=== PATIENT | male | born 1975 | race Caucasian/White ===

== ENCOUNTER 2016-05-21 21:29 | Emergency (ER) | payer BC ==
[~2016-05-21] VITALS: Ht 180.3 cm; Wt 89.8 kg
[2016-05-21 21:32] VITALS: TEMP 36.9; Ht 180.3 cm; Wt 89.8 kg
[2016-05-21] MEDS ORDERED: SODIUM CHLORIDE 0.9% 1000ML 1,000 ML IV STA (21:58)
[2016-05-21] MEDS ORDERED: ALBUT/IPRATROP 3MG/0.5MG NEB 3 ML VIAL INH STA (21:58)
[2016-05-21] MEDS ORDERED: OXYMETAZOLINE HCL 0.05% NA SPR 15 ML BTL ONE (22:00)
[2016-05-21] MEDS ORDERED: PARO1TAB27 PO (22:12)
[2016-05-21] MEDS ORDERED: LISI40TA PO (22:12)
[2016-05-21 22:42] LABS: BASO % 0.2 %; BASO ABS # 0.02 K/uL (0-0.2); COMPLETE YES; HEMATOCRIT 40.2 % (42-52); IG% 0.2 %; LYMPH % 26.9 %; MEAN CELL VOLUME 94.6 fL (80-100); MEAN CORPUSCULAR HEMOGLOBIN 33.4 pg (25-34); MEAN CORPUSCULAR HGB CONC 35.3 g/dl (32-36); MEAN PLATELET VOLUME 10.7 fL (7.4-10.4); MONO % 17.1 %; NEUT % 54.6 %; PLATELET COUNT 206 K/uL (130-400); RED BLOOD COUNT 4.25 M/uL (4.7-6.1); WHITE BLOOD COUNT 8.17 K/uL (4.8-10.8)
--- NOTE | 2016-05-21 22:57 | DIAGNOSTIC IMAGING REPORT ---
SINGLE VIEW CHEST CLINICAL HISTORY: Wheezing. FINDINGS: 2 AP, portable, upright chest radiographs are obtained. No prior studies are available for comparison at the time of dictation. The cardiomediastinal silhouette is unremarkable. There is diffuse nonspecific interstitial thickening. No lobar consolidation or large pleural effusion is identified. No pneumothorax is seen. The bony thorax is grossly intact. IMPRESSION: There is diffuse nonspecific interstitial thickening which could represent an infectious or inflammatory pneumonitis. No lobar consolidation or pleural effusion is identified. Electronically signed by: Paulino Kim M.D. 05/21/2016 10:56 PM Dictated Date/Time: 05/21/2016 10:55 PM
[2016-05-21 22:59] LABS: INR 0.9 (0.9-1.1); PARTIAL THROMBOPLASTIN RATIO 1.2
[2016-05-21 23:00] LABS: ALT/SGPT 47 U/L (12-78); BLOOD UREA NITROGEN 9 mg/dl (7-18); BUN/CREATININE RATIO 12.5 (10-20); CALCIUM 8.5 mg/dl (8.5-10.1); CARBON DIOXIDE 20 mmol/L (21-32); CHLORIDE 94 mmol/L (98-107); CREATININE 0.75 mg/dl (0.60-1.40); GLUCOSE 88 mg/dl (70-99); POTASSIUM 3.6 mmol/L (3.5-5.1); SODIUM 129 mmol/L (136-145)
[2016-05-21 23:05] LABS: ALKALINE PHOSPHATASE 75 U/L (45-117); AST/SGOT 60 U/L (15-37)
[2016-05-21] MEDS ORDERED: AZITHROMYCIN 250 MG TAB PO STA (23:25)
[2016-05-21] MEDS ORDERED: PRED50TA PO (23:28)
[2016-05-21] MEDS ORDERED: AZITTAB PO (23:28)
--- NOTE | 2016-05-21 23:29 | EMERGENCY ROOM VISIT NOTE ---
History Report prepared by Carlton: Sawyer Ware Under the Supervision of: Dr. Yao Carpenter M.D. First contact with patient: 21:52 Chief Complaint: NOSE BLEED (MINOR) Stated Complaint: BLOODY NOSE History of Present Illness The patient is a 40 year old male who presents to the Emergency Room with complaints of a persistent nosebleed beginning nine hours prior to arrival. 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 The patient denies hitting his head. He states he has had three episodes out of the right naris. The patient denies experiencing this frequent of a nosebleed in the past. He denies taking blood thinners. The patient notes he has been drinking alcohol this evening and drinks frequently. He denies liver problems. The patient notes he has been experiencing wheezing for the past couple of days and states he smokes two packs of cigarettes a day. He denies taking aspirin. 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 Review of Systems See HPI for pertinent positives & negatives. A total of 10 systems reviewed and were otherwise negative. Past Medical & Surgical Medical Problems: (1) Bronchitis (2) Hypertension (3) Pneumonia Family History Diabetes mellitus FHx: cancer FHx: heart disease Hypertension Seizures Social History Smoking Status: Current Every Day Smoker Alcohol Use: heavy Marital Status: Occupation Status: employed Current/Historical Medications Scheduled Azithromycin (Zithromax Z-López), 1 PKT PO UD Lisinopril (Zestril), 40 MG PO DAILY Paroxetine (Paxil), 20 MG PO DAILY Prednisone (Prednisone), 50 MG PO DAILY Allergies Coded Allergies: No Known Allergies (Unverified , 05/21/16) Physical Exam Vital Signs Date Time Temp Pulse Resp B/P Pulse Ox O2 Delivery O2 Flow Rate FiO2 05/22/16 00:00 88 20 151/90 96 05/21/16 22:55 93 18 137/92 96 Room Air 05/21/16 21:32 36.9 89 18 188/121 97 Room Air Physical Exam GENERAL: Patient is moderately intoxicated appearing and smells heavily of alcohol and tobacco. Shirt is covered in blood. HEENT: Some excoriations to right nasal septum without active bleeding. Blood in right naris. No acute trauma, normocephalic atraumatic, mucous membranes moist, no nasal congestion, no scleral icterus. NECK: No stridor, no adenopathy, no meningismus, trachea is midline. LUNGS: Junky nonproductive cough. Diffuse wheezing and crackles. HEART: Regular rate and rhythm. No murmurs, rubs, gallops appreciated. ABDOMEN: Soft, nontender, bowel sounds positive, no masses appreciated, no peritonitis. BACK: No midline tenderness, no CVA tenderness EXTREMITIES: Normal motion all extremities, no cyanosis, no edema. NEUROLOGIC: Alert and oriented, no acute motor or sensory deficits, no focal weakness, cranial nerves grossly intact. SKIN: No rash, no jaundice, no diaphoresis. Medical Decision & Procedures ER Provider Diagnostic Interpretation: X ray results are stated below per my interpretation and the radiologist's interpretation. SINGLE VIEW CHEST CLINICAL HISTORY: Wheezing. FINDINGS: 2 AP, portable, upright chest radiographs are obtained. No prior studies are available for comparison at the time of dictation. The cardiomediastinal silhouette is unremarkable. There is diffuse nonspecific interstitial thickening. No lobar consolidation or large pleural effusion is identified. No pneumothorax is seen. The bony thorax is grossly intact. IMPRESSION: There is diffuse nonspecific interstitial thickening which could represent an infectious or inflammatory pneumonitis. No lobar consolidation or pleural effusion is identified. Electronically signed by: Paulino Kim M.D. 05/21/2016 10:56 PM Laboratory Results 05/21/16 22:20 Red Blood Count 4.25, Mean Corpuscular Volume 94.6, Mean Corpuscular Hemoglobin 33.4, Mean Corpuscular Hemoglobin Concent 35.3, Mean Platelet Volume 10.7, Neutrophils (%) (Auto) 54.6, Lymphocytes (%) (Auto) 26.9, Monocytes (%) (Auto) 17.1, Eosinophils (%) (Auto) 1.0, Basophils (%) (Auto) 0.2, Neutrophils # (Auto ) 4.45, Lymphocytes # (Auto) 2.20, Monocytes # (Auto) 1.40, Eosinophils # (Auto ) 0.08, Basophils # (Auto) 0.02 05/21/16 22:20 Test 05/21/16 22:20 White Blood Count 8.17 K/uL (4.8-10.8) Red Blood Count 4.25 M/uL (4.7-6.1) Hemoglobin 14.2 g/dL (14.0-18.0) Hematocrit 40.2 % (42-52) Mean Corpuscular Volume 94.6 fL (80-100) Mean Corpuscular Hemoglobin 33.4 pg (25-34) Mean Corpuscular Hemoglobin Concent 35.3 g/dl (32-36) Platelet Count 206 K/uL (130-400) Mean Platelet Volume 10.7 fL (7.4-10.4) Neutrophils (%) (Auto) 54.6 % Lymphocytes (%) (Auto) 26.9 % Monocytes (%) (Auto) 17.1 % Eosinophils (%) (Auto) 1.0 % Basophils (%) (Auto) 0.2 % Neutrophils # (Auto) 4.45 K/uL (1.4-6.5) Lymphocytes # (Auto) 2.20 K/uL (1.2-3.4) Monocytes # (Auto) 1.40 K/uL (0.11-0.59) Eosinophils # (Auto) 0.08 K/uL (0-0.5) Basophils # (Auto) 0.02 K/uL (0-0.2) RDW Standard Deviation 46.8 fL (36.4-46.3) RDW Coefficient of Variation 13.5 % (11.5-14.5) Immature Granulocyte % (Auto) 0.2 % Immature Granulocyte # (Auto) 0.02 K/uL (0.00-0.02) Prothrombin Time 10.0 SECONDS (9.0-12.0) Prothromb Time International Ratio 0.9 (0.9-1.1) Activated Partial Thromboplast Time 31.7 SECONDS (21.0-31.0) Partial Thromboplastin Ratio 1.2 Anion Gap 15.0 mmol/L (3-11) Est Creatinine Clear Calc Drug Dose 136.6 ml/min Estimated GFR () 131.1 Estimated GFR (Non- 113.1 BUN/Creatinine Ratio 12.5 (10-20) Calcium Level 8.5 mg/dl (8.5-10.1) Total Bilirubin 0.4 mg/dl (0.2-1) Direct Bilirubin 0.1 mg/dl (0-0.2) Aspartate Amino Transf (AST/SGOT) 60 U/L (15-37) Alanine Aminotransferase (ALT/SGPT) 47 U/L (12-78) Alkaline Phosphatase 75 U/L (45-117) Troponin I < 0.015 ng/ml (0-0.045) Total Protein 8.0 gm/dl (6.4-8.2) Albumin 4.1 gm/dl (3.4-5.0) Ethyl Alcohol mg/dL 322.0 mg/dl (0-3) Laboratory results as reviewed by me. Medications Administered Medications (Trade) Dose Ordered Sig/Christine Route Start Time Stop Time Status Last Admin Dose Admin Albuterol/ Ipratropium 3 ml 3 ml NOW STAT INH 05/21/16 21:58 05/21/16 22:00 DC 05/21/16 22:22 3 ML Sodium Chloride (Nss 1000ml) 1,000 ml @ 999 mls/hr Q1H1M STAT IV 05/21/16 21:58 05/21/16 22:58 DC 05/21/16 22:23 999 MLS/HR Dexamethasone Sodium Phosphate (Decadron Inj) 10 mg NOW ONCE IV 05/21/16 23:30 05/21/16 23:31 DC 05/21/16 23:52 10 MG Azithromycin (Zithromax Tab) 500 mg NOW STAT PO 05/21/16 23:25 05/21/16 23:27 DC 05/21/16 23:52 500 MG Albuterol (Ventolin Hfa Inhaler) 2 puffs NOW ONCE INH 05/21/16 23:30 05/21/16 23:31 DC 05/21/16 23:53 2 PUFFS ED Course 4: The patient was evaluated in room C2B. A complete history and physical exam was performed. 2157: Ordered Sodium Chloride 1,000 ml @ 999 mls/hr IV, Duoneb 3 ml INH. 2199: Ordered Oxymetazoline HCl 1 sprays NA. 7: Reevaluated the patient at this time, and he notes he eats well. 4: Reevaluated the patient at this time, and offered to help the patient with his alcohol addiction. He is not interested. The patient notes the last time he tried to quit drinking was 1-2 years ago, at which point he had seizures. He states his bronchitis symptoms began one week ago, and it it similar to previous bronchitis episodes. The patient was offered to come in, and he said he needs to go home. He states he eats one good meal a day, and he will go home to eat food and notes he had a large hoagie for lunch. 2325: Ordered Azithromycin 500 mg PO. 2329: Ordered Albuterol 2 puffs INH, Decadron Inj 10 mg IV. 233: Reevaluated the patient. Discussed results and discharge instructions: He verbalized understanding and agreement. The patient is ready for discharge. Medical Decision Differential: Anterior/Posterior Epistaxis, Coagulopathy, Trauma, Fracture, Septal Hematoma, amongst other pathologies entertained. 40 yr old male arrives for evaluation of right epistaxis. No clear source of bleed though some excoriations right nasal septum along with some old blood in nares. He is clearly intoxicated and admits he is an alcoholic with previous seizures on trying to quite. Admits case of beer every few days. With this info felt labs reasonable. Also has been having cough over last week. Diffuse wheezing on examination though sating well. CXR clear. Steroids/abx and albuterol as outpatient. Patient makes clear he will not stay in hospital and wishes to go home. States he eats well and does not appear malnutritioned. He is comfortable and in no distress. No further bleeding after Afrin and clear for a few hours. Wishes to go home and again I offered bringing him in. Discussed nose bleed instructions, bronchitis instructions, and fact that he should seek help for his alcoholism. Aware we are always here if he wishes further evaluation and treatment. Impression Primary Impression: Right-sided epistaxis Additional Impressions: Alcoholism Alcohol intoxication Hyponatremia Hypertension Bronchitis, acute Scribe Attestation The scribe's documentation has been prepared under my direction and personally reviewed by me in its entirety. I confirm that the note above accurately reflects all work, treatment, procedures, and medical decision making performed by me. Departure Information Dispostion Home / Self-Care Prescriptions Azithromycin (ZITHROMAX Z-LÓPEZ) 250 Mg Tab 1 PKT PO UD, #1 PKT Prov: Yao Carpenter M.D. 05/21/16 Prednisone (Prednisone) 50 Mg Tab 50 MG PO DAILY for 5 Days, #5 TAB Prov: Yoa Carpenter M.D. 05/21/16 Referrals No Doctor, Assigned (PCP) Forms HOME CARE DOCUMENTATION FORM, IMPORTANT VISIT INFORMATION, WORK / SCHOOL INSTRUCTIONS Patient Instructions Alcoholism, Bronchitis Acute, ED Nosebleed, My [facility] Health Problem Qualifiers Additional Impressions: Alcohol intoxication Complication of substance-induced condition: uncomplicated Qualified Codes: F10.120 - Alcohol abuse with intoxication, uncomplicated Hypertension Hypertension type: essential hypertension Qualified Codes: I10 - Essential ( primary) hypertension Bronchitis, acute Bronchitis organism: unspecified organism Qualified Codes: J20.9 - Acute bronchitis, unspecified
[2016-05-21] MEDS ORDERED: ALBUTEROL HFA 8 GM INHALER INH ONE (23:30)
[2016-05-21] MEDS ORDERED: DEXAMETHASONE SOD INJ 10 MG/ML VIAL IV ONE (23:30)
[2016-05-22] VITALS: BP 151/90; PULSE 88; O2SAT 96
== END 2016-05-22 | disposition home or self-care (01) ==
LOC: C.EDB 21:32 → C.EDC 05-22
DX: R04.0 Epistaxis (principal); F10.129 Alcohol abuse with intoxication, unspecified; E87.1 Hypo-osmolality and hyponatremia; I10 Essential (primary) hypertension; J20.9 Acute bronchitis, unspecified; F17.200 Nicotine dependence, unspecified, uncomplicated; Z83.3 Family history of diabetes mellitus; Z82.49 Family history of ischemic heart disease and other diseases of the circulatory system; Z82.0 Family history of epilepsy and other diseases of the nervous system